=== PATIENT | female | born 1945 | race Caucasian/White ===

== ENCOUNTER 2017-09-12 08:06 | Day surgery (SDC) | payer MEDICARE, BC ==
[2017-09-12] MEDS ORDERED: Lactated Ringers 1,000 ML IV SCH (08:15)
[2017-09-12] MEDS ORDERED: Sodium Chloride 0.9% 10 ML Syringe FLUSH PRN (08:15)
[2017-09-12] MEDS ORDERED: Midazolam 1 MG/ML 2 ML SDV IV ONE (09:20)
[2017-09-12] MEDS ORDERED: Lidocaine 2% 100 MG/5 ML Syringe IVPUSH ONE (09:20)
[2017-09-12] MEDS ORDERED: Propofol 200 MG/20 ML SDV IV ONE (09:20)
--- NOTE | 2017-09-12 09:56 | PCM.OPNOTE ---
- General Post-Op/Procedure Note Date of Surgery/Procedure: 09/12/17 Operative Procedure(s): c scope with bx Findings: rectal polyp scattered diverticulosis Pre Op Diagnosis: colon cancer screening Post-Op Diagnosis: rectal polyp. scattered diverticulosis Anesthesia Technique: MAC Primary Surgeon: Sean Shi Anesthesia Provider: Sue Huynh Pathology: rectal polyp Complications: None Condition: Good Free Text/Narrative:: see dictation
[2017-09-12 10:30] VITALS: BP 120/60
--- NOTE | 2017-09-12 14:08 | OR ---
DATE OF OPERATION: 09/12/2017 SURGEON: Sean Shi MD PROCEDURE PERFORMED: Colonoscopy with cold forceps biopsy. PREOPERATIVE DIAGNOSIS: Occult blood in stool, colon cancer screening. POSTOPERATIVE DIAGNOSIS: Rectal polyp and scattered diverticulosis. INDICATIONS FOR PROCEDURE: This is a 72-year-old white female who is referred for a colonoscopy. Last one was 10 years ago. Essentially, she is without complaints. She did have some mild occult blood in stool, but otherwise no significant issues. DESCRIPTION OF PROCEDURE: After an excellent IV sedation was administered, digital rectal exam was performed. No marked abnormality was noted. Flexible colonoscope was inserted and advanced to the cecum without difficulty. The prep was excellent. The following findings were noted: Ascending colon, scattered diverticula. Transverse colon, scattered diverticula. Descending colon, scattered diverticula. Rectum and anus; at the distal rectum, small polypoid lesion encountered, biopsied with cold biopsy forceps and sent for permanent. The colon was deflated as the scope was removed. The patient tolerated the procedure well, and was taken to recovery room in good condition. /[id number] /MODL
== END 2017-09-12 11:11 | disposition home or self-care (01) ==
LOC: FB.SDS 08:06
PROVIDERS: ATTEND Surgery
DX: D12.8 Benign neoplasm of rectum (principal); K57.30 Diverticulosis of large intestine without perforation or abscess without bleeding; E78.2 Mixed hyperlipidemia; G47.33 Obstructive sleep apnea (adult) (pediatric); K21.9 Gastro-esophageal reflux disease without esophagitis; E11.9 Type 2 diabetes mellitus without complications; E66.3 Overweight; J45.909 Unspecified asthma, uncomplicated; F41.9 Anxiety disorder, unspecified; F32.9 Major depressive disorder, single episode, unspecified; Z88.8 Allergy status to other drugs, medicaments and biological substances; Z79.84 Long term (current) use of oral hypoglycemic drugs; Z79.899 Other long term (current) drug therapy; Z79.82 Long term (current) use of aspirin; Z87.891 Personal history of nicotine dependence; Z68.34 Body mass index [BMI] 34.0-34.9, adult; Z99.89 Dependence on other enabling machines and devices
CPT/HCPCS: 00810; 45380; 82962; 88305; J2250; J2704; J7120